=== PATIENT | female | born 1970 | race Caucasian/White ===

== ENCOUNTER 2018-06-09 05:44 | Day surgery (SDC) | payer BC ==
[~2018-06-09] VITALS: Ht 180.3 cm; Wt 111.1 kg
[~2018-06-09 05:44] MED LIST: SYNTHROID100 MCG PO
[2018-06-09 06:22] VITALS: BP 140/83
[2018-06-09 09:20] VITALS: BP 136/62
[2018-06-09 10:07] VITALS: BP 129/71
== END 2018-06-09 10:10 | disposition home or self-care (01) ==
LOC: SDC 05:44
DX: N92.1 Excessive and frequent menstruation with irregular cycle (principal); N84.1 Polyp of cervix uteri; N84.0 Polyp of corpus uteri; D25.1 Intramural leiomyoma of uterus; D50.0 Iron deficiency anemia secondary to blood loss (chronic); N93.9 Abnormal uterine and vaginal bleeding, unspecified; E06.3 Autoimmune thyroiditis; E03.9 Hypothyroidism, unspecified; E04.2 Nontoxic multinodular goiter; E66.9 Obesity, unspecified; Z80.41 Family history of malignant neoplasm of ovary; Z80.3 Family history of malignant neoplasm of breast; Z82.49 Family history of ischemic heart disease and other diseases of the circulatory system
CPT/HCPCS: 88305; J0131; J1100; J1885; J2250; J2405; J3010